=== PATIENT | female | born 1950 | race Caucasian/White ===

== ENCOUNTER → 2017-01-15 | Outpatient (CLI) | payer MEDICARE ==
[~2017-01-15] MED LIST: BACTRIM DS 8001 TA1 PO; CYMBALTA60 MG PO; LISINOPRIL HCTZ1 TA1 PO; METFORMIN500 MG PO; POTASSIUM CHLO10 MEQ PO; PRAVASTATIN SOD80 MG PO; ROBAXIN750 MG PO; SYNTHROID0.125 MG PO; VOLTAREN50 M1 PO
== END | disposition home or self-care (01) ==
LOC: MAMMO 00:37
DX: Z12.31 Encounter for screening mammogram for malignant neoplasm of breast (principal)

== ENCOUNTER → 2018-04-21 | Outpatient (CLI) | payer MEDICARE | END | disposition home or self-care (01) | LOC: MAMMO 01:06 | DX: Z12.31 Encounter for screening mammogram for malignant neoplasm of breast (principal) ==

== ENCOUNTER 2019-09-01 04:14 | Inpatient (IN) | payer MEDICARE ==
[~2019-09-01] VITALS: Ht 160 cm; Wt 58.8 kg
[2019-09-01] VITALS (7 sets, daily range): BP systolic 131–170; BP diastolic 54–80
[~2019-09-01 04:14] MED LIST changes: +GLUCOPHAGE1000 MG PO; -METFORMIN500 MG PO; +SYNTHROID,LEVO75 MCG PO; -SYNTHROID0.125 MG PO
[2019-09-01 04:58] LABS: BASO # 0.1 10*3/uL (0.0-0.1); BASO % 0.8 % (0.0-1.0); EOS # 0.5 10*3/uL (0.0-0.4); EOS % 3.8 % (1.0-4.0); HEMATOCRIT 35.8 % (37.0-47.0); HEMOGLOBIN 11.4 g/dl (12.0-16.0); LYMPH # 3.8 10*3/uL (1.3-4.4); LYMPH % 30.1 % (27.0-41.0); MEAN CELL VOLUME 93.2 fl (81.0-99.0); MEAN CORPUSCULAR HGB 29.7 pg (27.0-31.0); MEAN CORPUSCULAR HGB CONC 31.8 g/dl (33.0-37.0); MEAN PLATELET VOLUME 9.7 fl (9.6-12.3); MONO # 0.8 10*3/uL (0.1-1.0); MONO % 5.9 % (3.0-9.0); NEUT # 7.5 10*3/uL (2.3-7.9); NEUT % 59.1 % (47.0-73.0); PLATELET COUNT AUTOMATED 278 10*3/uL (130-400); RED BLOOD COUNT 3.84 10*6/uL (4.10-5.10); RED CELL DISTRI WIDTH 12.7 % (0-14.5); WHITE BLOOD COUNT 12.6 10*3/uL (4.8-10.8)
[2019-09-01 05:11] LABS: INTERNATIONAL NORM RATIO 0.9 (2.0-3.5)
[2019-09-01 05:17] LABS: ALBUMIN 3.7 gm/dl (3.1-4.5); ALKALINE PHOSPHATASE 50 U/L (45-117); BUN 17 mg/dl (7-24); CHLORIDE 105 mmol/L (98-107); CREATININE 0.89 mg/dL (0.55-1.02); POTASSIUM 3.5 mmol/L (3.5-5.1); SGOT/AST 14 IU/L (3-35); SGPT/ALT 14 U/L (12-78); SODIUM 139 mmol/L (136-145); TOTAL PROTEIN 7.3 gm/dL (6.4-8.2)
[2019-09-01 05:22] LABS: TROPONIN I < 0.015 ng/ml (<0.045)
[2019-09-01 07:10] LABS: BILIRUBIN NEGATIVE (NEGATIVE); BLOOD 1+ (NEGATIVE); CLARITY CLOUDY (CLEAR); COLOR YELLOW (YELLOW); GLUCOSE NEGATIVE (NEGATIVE); KETONE NEGATIVE (NEGATIVE); LEUKO ESTERASE 2+ (NEGATIVE); NITRITE POSITIVE (NEGATIVE); PH 6.5 (5.0-9.0); RBC TNTC rbc/hpf (0-2); UROBILINOGEN 0.2 E.U./dl (0.2-1.0)
[2019-09-01 07:11] LABS: BACTERIA 4+; WBC TNTC wbc/hpf (0-5)
--- NOTE | 2019-09-01 07:18 | NUR ---
REPORT FROM CRISTAL WONG AT THIS TIME. PATIENT LAYING IN BED IN NO DISTRESS.
--- NOTE | 2019-09-01 08:40 | NUR ---
A 69, admitted to , under the services of GLENROY Cook DO with a diagnosis of syncope and colapse. Chief complaint is stroke. Patient arrived via stretcher from ER. Monitor applied. Initial assessment completed. Vital signs taken and recorded. GLENROY COOK DO notified of admission to the unit. Orders received. See assessment for past medical history, medications and allergies. Patient and/or family oriented to unit. [address] visitation policy reviewed. Clothing/patient valuable form completed. STANFORD HUNT
[2019-09-01] MEDS ORDERED: ASPIRIN ADULT L81 M1 PO (08:56)
[2019-09-01] MEDS ORDERED: CARBIDOPA-LEVO1 EAC6 PO (08:56)
[2019-09-01] MEDS ORDERED: NEXIUM40 MG PO (08:59)
[2019-09-01] MEDS ORDERED: ZYRTEC ALLERGY10 MG PO (09:02)
--- NOTE | 2019-09-01 09:39 | NUR ---
Notified Dr. Zavala that patients med rec is updated. No new orders physician to follow up.
--- NOTE | 2019-09-01 11:38 | NUR ---
Per request of Dr. Zavala contacted pharmacy to verify home medications. Pharmacist to fax list.
--- NOTE | 2019-09-01 12:34 | NUR ---
Spoke with Darien, pharmacist at regarding Cymbalta. Per pharmacist patient is no longer taking Cymbalta. She is on Zoloft 25mg daily. She also stated that there is a prescription for Zoloft 50mg daily but patient has not picked it up yet. Called Dr. Zavala and relayed message. See med rec.
[2019-09-01] MEDS ORDERED: ZOLOFT25 MG PO (12:37)
--- NOTE | 2019-09-01 12:47 | NUR ---
Tylenol given per patient request for c/o headache rated 4/10. Will monitor.
[2019-09-01] MEDS ORDERED: CLOPIDOGREL75 MG PO (17:35)
[2019-09-01] MEDS ORDERED: LIPITOR40 MG PO (17:37)
[2019-09-01] MEDS ORDERED: LOPRESSOR25 MG PO (17:37)
--- NOTE | 2019-09-01 20:10 | NUR ---
PATIENT STATED SHE FELT NAUSEATED. WHEN SHE GOT UP TO THE RESTROOM. ZOFRAN WAS GIVEN. WILL MONITOR AND REASSESS.
--- NOTE | 2019-09-01 22:00 | NUR ---
ZOFRAN EFFECTIVE FOR NAUSEA.
[2019-09-02] VITALS: BP 107/51
--- NOTE | 2019-09-02 01:14 | NUR ---
24 HR chart check completed.
[2019-09-02 06:57] LABS: BASO # 0.1 10*3/uL (0.0-0.1); BASO % 1.2 % (0.0-1.0); EOS # 0.4 10*3/uL (0.0-0.4); EOS % 5.9 % (1.0-4.0); HEMATOCRIT 31.9 % (37.0-47.0); HEMOGLOBIN 10.3 g/dl (12.0-16.0); LYMPH # 2.7 10*3/uL (1.3-4.4); LYMPH % 39.7 % (27.0-41.0); MEAN CELL VOLUME 90.9 fl (81.0-99.0); MEAN CORPUSCULAR HGB 29.3 pg (27.0-31.0); MEAN CORPUSCULAR HGB CONC 32.3 g/dl (33.0-37.0); MEAN PLATELET VOLUME 9.8 fl (9.6-12.3); MONO # 0.6 10*3/uL (0.1-1.0); MONO % 8.4 % (3.0-9.0); NEUT # 3.1 10*3/uL (2.3-7.9); NEUT % 44.5 % (47.0-73.0); PLATELET COUNT AUTOMATED 249 10*3/uL (130-400); RED BLOOD COUNT 3.51 10*6/uL (4.10-5.10); RED CELL DISTRI WIDTH 12.3 % (0-14.5); WHITE BLOOD COUNT 6.9 10*3/uL (4.8-10.8)
[2019-09-02 07:28] LABS: ALBUMIN 3.5 gm/dl (3.1-4.5); BUN 12 mg/dl (7-24); CHLORIDE 97 mmol/L (98-107); POTASSIUM 3.4 mmol/L (3.5-5.1); SODIUM 131 mmol/L (136-145)
[2019-09-02 07:35] LABS: ALKALINE PHOSPHATASE 44 U/L (45-117); CHOLESTEROL 116 mg/dL (<200); CREATININE 0.76 mg/dL (0.55-1.02); FREE T4 1.32 ng/dl (0.76-1.46); HDL CHOLESTEROL 61 mg/dl (40-60); LDL CHOLESTEROL 39 mg/dL (9-159); PHOSPHOROUS 3.1 mg/dL (2.5-4.9); SGOT/AST 12 IU/L (3-35); SGPT/ALT 10 U/L (12-78); THYROID STIM HORMONE (HS) 0.818 uIU/ml (0.358-4.75); TOTAL PROTEIN 6.8 gm/dL (6.4-8.2); TRIGLYCERIDES 81 mg/dl (<150); VLDL CHOLESTEROL 16 mg/dL (6-40)
[2019-09-02 08:16] LABS: VITAMIN D, 25-HYDROXY 29.1 ng/mL (30-100)
--- NOTE | 2019-09-02 09:00 | NUR ---
Laser Systems Engineer in to talk to patient. Patient states lives at home with . There are 10 steps in the home. Physician: bryce pretty [facility]acy: [facility] [place] [facility]: none Patient's level of ADLs: INDEPENDENT Patient has working utilities: all working DME: none Follow-up physician's appointment after d/c: will be amde by hospitalist nurse director upon discharge Does patient want to access PORTAL?: no Discharge plan discussed with patient, she states she lives at home with her , she states she is independent in adls and ambulation, she states she will return home when medically stable and denies any home needs, case management willfollow. ROULA JARQUIN
--- NOTE | 2019-09-02 09:02 | NUR ---
Called regarding orthostatic blood pressures. See vitals.
[2019-09-02 12:00] VITALS: BP 149/66
--- NOTE | 2019-09-02 12:08 | NUR ---
case management receied a script for out patient [place] [facility] at [facility], called therapy center and spoke to Monique. she stated patient will have to call for an appointment and bring the script with her, informed patient
[2019-09-02 16:00] VITALS: BP 158/70
--- NOTE | 2019-09-02 18:04 | NUR ---
Notified Dr. Solares of orthostatic blood pressures. See vitals. Patient was asymptomatic.
--- NOTE | 2019-09-02 18:41 | NUR ---
Discharge instructions reviewed with patient/family. Patient receptive and verbalizes understanding. Follow-up care arranged. Written instructions given to patient/family. Patient was wheeled from unit by staff member with and all personal belongings accounted for. Patient was educated on taking the antibiotic prescribed by pcp for UTI. She was also educated on follow up visit next week. STANFORD HUNT J
== END 2019-09-02 18:41 | disposition home or self-care (01) | DRG 312 ==
LOC: ED 04:14 → EDHOLD 06:44 → 4E 06:44
PROVIDERS: Emergency Medicine; Internal Medicine; ADMIT Internal Medicine
DX: I95.1 Orthostatic hypotension (principal); N39.0 Urinary tract infection, site not specified; E86.0 Dehydration; E11.65 Type 2 diabetes mellitus with hyperglycemia; E83.42 Hypomagnesemia; D64.9 Anemia, unspecified; G20 Parkinson's disease; I10 Essential (primary) hypertension; E03.9 Hypothyroidism, unspecified; E78.5 Hyperlipidemia, unspecified; R31.9 Hematuria, unspecified; B96.89 Other specified bacterial agents as the cause of diseases classified elsewhere; Z86.73 Personal history of transient ischemic attack (TIA), and cerebral infarction without residual deficits; Z79.899 Other long term (current) drug therapy; Z90.710 Acquired absence of both cervix and uterus; Z82.49 Family history of ischemic heart disease and other diseases of the circulatory system; Z82.3 Family history of stroke; Z91.013 Allergy to seafood; Z79.82 Long term (current) use of aspirin

== ENCOUNTER → 2019-10-06 | Outpatient (CLI) | payer MEDICARE ==
[~2019-10-06] MED LIST changes: +ASPIRIN ADULT L81 M1 PO; +CARBIDOPA-LEVO1 EAC6 PO; +CLOPIDOGREL75 MG PO; +LIPITOR40 MG PO; +LOPRESSOR25 MG PO; +NEXIUM40 MG PO; +ZOLOFT25 MG PO; +ZYRTEC ALLERGY10 MG PO
== END | disposition home or self-care (01) ==
LOC: MAMMO 00:53
DX: Z12.31 Encounter for screening mammogram for malignant neoplasm of breast (principal); R73.03 Prediabetes

== ENCOUNTER → 2020-11-01 | Outpatient (CLI) | payer MEDICARE | END | disposition home or self-care (01) | LOC: RAD 10-18 08:00 → MAMMO 10-18 08:30 → RAD 00:44 | PROVIDERS: ATTEND Family Medicine | DX: Z12.31 Encounter for screening mammogram for malignant neoplasm of breast (principal); Z13.820 Encounter for screening for osteoporosis; Z78.0 Asymptomatic menopausal state ==

== ENCOUNTER → 2021-07-16 | Outpatient (CLI) | payer MEDICARE | END | disposition home or self-care (01) | LOC: COVID19 16:39 | PROVIDERS: ATTEND Internal Medicine | DX: Z20.822 Contact with and (suspected) exposure to COVID-19 (principal) ==

== ENCOUNTER → 2022-01-02 | Outpatient (CLI) | payer MEDICARE | END | disposition home or self-care (01) | LOC: MAMMO 01:43 | PROVIDERS: ATTEND Family Medicine | DX: Z12.31 Encounter for screening mammogram for malignant neoplasm of breast (principal) ==

== ENCOUNTER → 2023-06-16 | Outpatient (CLI) | payer MEDICARE ==
[~2023-06-16] MED LIST changes: +AMLODIPINE BESYL5 MG PO; +NORTRIPTYLINE H10 M1 PO
[2023-06-16 14:02] LABS: BILIRUBIN Negative (Negative); BLOOD 2+ (Negative); CLARITY Turbid (Clear); COLOR Yellow (Yellow); GLUCOSE Negative (Negative); KETONE Trace (Negative); LEUKO ESTERASE 3+ (Negative); NITRITE Negative (Negative); PH 5.5 (4.5-8.0); SPECIFIC GRAVITY 1.025 (1.001-1.030)
[2023-06-16 14:12] LABS: URINE CREATININE RANDOM 145.82 mg/dL
[2023-06-16 14:27] LABS: BACTERIA 3+; RBC TNTC rbc/hpf (0-2); WBC TNTC wbc/hpf (0-5)
== END | disposition home or self-care (01) ==
LOC: LAB 12:53
PROVIDERS: ATTEND Internal Medicine Nephrology
DX: R30.0 Dysuria (principal); N18.2 Chronic kidney disease, stage 2 (mild)